=== PATIENT | female | born 1970 | race Caucasian/White ===

== ENCOUNTER 2018-10-16 09:15 | Day surgery (SDC) | payer OTHER ==
[~2018-10-16 09:15] MED LIST: LR 1,000 ML IV ONE
--- NOTE | 2018-10-16 09:59 | POSTANESTH ---
Post Anesthetic Evaluation Cardiovascular Status: Normal, Stable Respiratory Status: Normal, Stable Level of Consciousness/Mental Status: Can Participate in Eval, Mildly Sleepy, Arousable Pain Control: Adequate, Prn Tx Ordered Nausea/Vomiting Control: Adequate, Prn Tx Ordered Complications Possibly Related to Anesthesia: None Noted
--- NOTE | 2018-10-16 10:01 | PDANEPAE ---
ANE History of Present Illness 48 yo female with chronic abdominal pain, belching and nausea for EGD. ANE Past Medical History - Cardiovascular History Hx Hypertension: No Hx Arrhythmias: No Hx Chest Pain: No Hx Coronary Artery / Peripheral Vascular Disease: No Hx CHF / Valvular Disease: No Hx Palpitations: No - Pulmonary History Hx COPD: No Hx Asthma/Reactive Airway Disease: No Hx Recent Upper Respiratory Infection: No Hx Oxygen in Use at Home: No Hx Sleep Apnea: No Sleep Apnea Screening Result - Last Documented: Negative - Neurologic History Hx Cerebrovascular Accident: No Hx Seizures: No Hx Dementia: No - Endocrine History Hx Diabetes: No Hypothyroid: No Hyperthyroid: No Obesity: no - Renal History Hx Renal Disorders: No - Liver History Hx Hepatic Disorders: No - Neurological & Psychiatric Hx Hx Neurological and Psychiatric Disorders: Yes Neurological / Psychiatric History Comment: bipolar 2. deathly afraid of hospitals - Cancer History Hx Cancer: No - Congenital Disorder History Hx Congenital Disorders: No - GI History Hx Gastrointestinal Disorders: Yes Gastrointestinal History Comment: lots of GI issues - Other Health History Other Health History: none - Chronic Pain History Chronic Pain: Yes (left hip) - Surgical History Prior Surgeries: colonoscopy 2 weeks ago. hysterectomy. c-sections x2 ANE Review of Systems Review of Systems: - Exercise capacity METS (RN): 4 METS - Systems Constitutional: Reports: no symptoms Cardiac: Reports: no symptoms Respiratory: Reports: no symptoms Gastrointestinal: Reports: abdominal pain, nausea, other (belching) ANE Patient History - Allergies Allergies/Adverse Reactions: amoxicillin Allergy (Verified 10/15/18 11:04) Rash Penicillins Allergy (Verified 10/15/18 11:04) Rash all cillins Allergy (Uncoded 10/15/18 11:04) Rash - Home Medications Home Medications: Ativan 10/15/18 [Last Taken Unknown] [place] Aspartate 10/15/18 [Last Taken Unknown] Xanax 10/15/18 [Last Taken Unknown] - NPO status NPO Status: no food or drink >8 hours - Anes Hx Anes Hx: no prior problems - Smoking Hx Smoking Status: Current some day smoker Marijuana use: No - Alcohol Use Alcohol Use: Sober (quit 21 months ago at the time of an unspecified trauma) - Family Anes Hx Family Hx Anesthesia Complications: none ANE Labs/Vital Signs - Vital Signs Vital Signs: reviewed preoperatively; see RN documention for details Height: 160.02 cm Weight: 61.507 kg ANE Physical Exam - Airway Neck exam: FROM Mallampati Score: Class 2 Mouth exam: normal dental/mouth exam - Pulmonary Pulmonary: clear to auscultation - Cardiovascular Cardiovascular: regular rate and rhythym - ASA Status ASA Status: II ANE Anesthesia Plan Anesthesia Plan: GA with mask Total IV Anesthesia: Yes
[2018-10-16] MEDS ORDERED: PROPOFOL 200 MG/20 ML VIAL ONE ×2 (10:07→10:10)
[2018-10-16] MEDS ORDERED: fentaNYL 100 MCG/2 ML INJ ONE (10:07)
[2018-10-16] MEDS ORDERED: LIDOCAINE 2% 5 ML SDV ONE (10:07)
--- NOTE | 2018-10-16 10:35 | GIREPORT ---
Former[facility] - Endoscopy Department Patient Name: Karin Yusuf Procedure Date: 10/16/2018 9:54 AM Patient Type: Outpatient Attending MD/ ER Physician: Mich Marroquin MD Procedure: Upper GI endoscopy Indications: Abdominal pain in the left upper quadrant, as well generalized, with so me "churning." Belching, which can cause some esophageal burning; no benef it with Gas-X. Otherwise, only gets heartburn about once a week. No benefi t with zantac 300 mg bid. Hasn't tried a PPI. Chronic digestive symptoms, including diarrhea with alternating constipation. Some weight loss. BiP olar, on lithium, with recent lithium level "o.k." Nl celiac serologies, TSH, CMP, CBC, colonoscopy, terminal ileum. Else, please see Dr. Gillis' G.I. office note. Providers: Mich Marroquin MD, FACG Referring MD: Cintia Ceballos MD Medicines: See the Anesthesia note for documentation of the administered medicatio ns Complications: No immediate complications. Description of Procedure: After obtaining informed consent, the endoscope was passed under direct vision. Throughout the procedure, the patient's blood pressure, pulse, and oxygen saturations were monitored continuously. The Endoscope was intro duced through the mouth, and advanced to the second part of duodenum. Findings: A single medium erosion was found at the gastroesophageal junction. Ran dom biopsies were taken with a cold forceps for histology from the upper an d lower esophagus. Localized mild focal nodularity was found on the greater curvature of t he stomach, distally. Biopsies were taken with a cold forceps for histolog y. Biopsies were also taken with a cold forceps for Helicobacter pylori te sting from the antrum and cardia. The examined duodenum was normal. Biopsies were taken with a cold force ps for histology. Estimated Blood Loss: none. Post Op Diagnosis: - Possible heartburn and mild gastritis, as above. Although this might be causing some of her symptoms, overall suspect mo stly due to irritable bowel syndrome. Recommendation: - Pathology results pending; we will call the pt. with these in about t days. - Omeprazole 40 mg p.o. daily. - Dicyclomine 10 mg tabs, 1 - 2 p.o. qid prn abdominal pain, "churning. " - Return to see me in the office in about four weeks; my nurse will con tact the patient to arrange. - Thank you for allowing me to help in the management of this patient. Attending Participation: I personally performed the entire procedure. Cara Epps MD Mich Marroquin MD 10/16/2018 10:35:13 AM This report has been signed electronicallyPeter MD Cara Number of Addenda: 0 Note Initiated On: 10/16/2018 9:54 AM [email or web address]
[2018-10-16 11:05] VITALS: BP 120/69
== END 2018-10-16 11:25 | disposition home or self-care (01) ==
LOC: FSGY 09:15
PROVIDERS: ATTEND Internal Medicine Gastroenterology
DX: K21.9 Gastro-esophageal reflux disease without esophagitis (principal); K29.50 Unspecified chronic gastritis without bleeding; F31.9 Bipolar disorder, unspecified
CPT/HCPCS: J2704; J3010